=== PATIENT | male | born 1950 | race Two or more races ===

== ENCOUNTER → 2020-04-24 08:00 | Outpatient (CLI) | payer OTHER ==
[~2020-04-24 08:00] MED LIST: ELIQUIS PO; LIPITOR PO; NEURONTIN600 M1 PO; NORVASC5 MG PO; PROTONIX40 M1; SINEMET 25-1001 EACH PO
== END | disposition home or self-care (01) ==
LOC: ADM 04-23 10:30 → LAB 08:00 → CIR.AMB 04-30 10:30 → EDSTATUS 04-30 10:30
PROVIDERS: ATTEND Surgery
DX: K42.9 Umbilical hernia without obstruction or gangrene (principal); K43.9 Ventral hernia without obstruction or gangrene; Z20.828 Contact with and (suspected) exposure to other viral communicable diseases; Z03.818 Encounter for observation for suspected exposure to other biological agents ruled out